=== PATIENT | male | born 1990 | race Two or more races ===

== ENCOUNTER 2018-04-04 03:43 | Emergency (ER) | payer BC ==
[~2018-04-04] VITALS: Ht 170.2 cm; Wt 79.4 kg
[2018-04-04 05:43] LABS: Basophils # (auto) 0 uL; Basophils % (auto) 0.2 % (0.0-2.0); Eosinophils # (auto) 0 uL; Eosinophils % (auto) 0.5 % (0.0-7.0); Hematocrit 45.9 % (41.0-53.0); Hemoglobin 15.8 g/dL (13.5-17.5); Lymphocytes # (auto) 0.9 uL; Lymphocytes % (auto) 10.6 % (10.0-50.0); Mean Corpuscular Hemoglobin 31.7 pg (28.0-32.0); Mean Corpuscular Hgb Conc. 34.3 g/dL (32.0-36.0); Mean Corpuscular Volume 92.4 fL (80.0-100.0); Monocytes # (auto) 0.6 uL; Monocytes % (auto) 6.6 % (0.0-12.0); Neutrophils # (auto) 7.3 uL; Neutrophils % (auto) 82.1 % (37.0-80.0); Nucleated Red Blood Cells % 0.1 %; Platelet Count (auto) 223 10^3/uL (140-450); Red Blood Cells 4.97 10^6/uL (4.5-5.90); Red Cell Distribution Width 12.9 % (11.8-14.3); White Blood Cell 8.9 10^3/uL (4.4-10.8)
[2018-04-04 06:06] LABS: BUN/Creatinine Ratio 28.9; Calcium 9.2 mg/dL (8.5-10.1); Potassium 3.7 mmol/L (3.5-5.1)
[2018-04-04 06:10] LABS: Bilirubin, Total 0.5 mg/dL (0.2-1.0); Total Protein 8.1 g/dL (6.4-8.2)
[2018-04-04] MEDS ORDERED: SODIUM CHLORIDE 0.9% 1,000 ML IV ONE (07:01)
[2018-04-04 07:23] VITALS: BP 123/73
== END 2018-04-04 08:19 | disposition home or self-care (01) ==
LOC: EDBD 03:43 → ER 03:55
DX: R55 Syncope and collapse (principal)
CPT/HCPCS: 36415; 70450; 72125; 80053; 84484; 85025; 94761; 96360